=== PATIENT | female | born 1975 | race Two or more races ===

== ENCOUNTER 2020-04-08 15:19 | Emergency (ER) | payer MEDICAID ==
[2020-04-08] MEDS ORDERED: Ketorolac 60 MG/2 ML SDV ONE (16:23)
[2020-04-08] MEDS ORDERED: Ketorolac 60 MG/2 ML SDV IM ONE (16:26)
--- NOTE | 2020-04-08 17:01 | CRLCR ---
INDICATION: Fall. Pain. TECHNIQUE: Three views right wrist. FINDINGS: Mildly displaced my are mildly angulated acute comminuted fracture involving the distal right radius with intra-articular extension. Mild to moderate soft tissue swelling distal right forearm and wrist. No other fracture or dislocation in right wrist. On the lateral view, the right ulna is mildly displaced dorsally. Remainder negative. Dictated by Ravi Power MD @ Apr 08 2020 4:58PM Signed by Dr. Ravi Power @ Apr 08 2020 5:00PM
--- NOTE | 2020-04-08 17:45 | EDM.PDOC ---
ED HPI GENERAL MEDICAL PROBLEM - General Chief Complaint: Upper Extremity Injury/Pain Stated Complaint: HURT RIGHT WRIST Time Seen by Provider: 04/08/20 16:23 Source of Information: Reports: Patient, Family, RN Notes Reviewed History Limitations: Reports: No Limitations - History of Present Illness INITIAL COMMENTS - FREE TEXT/NARRATIVE: 44-year-old female presents emergency department today after a fall on outstretched hand right - Related Data Allergies Allergy/AdvReac Type Severity Reaction Status Date / Time acetaminophen [From Tylenol] Allergy Rash Verified 04/08/20 16:14 amoxicillin Allergy Rash Verified 04/08/20 16:14 Home Meds: Home Meds PARoxetine [Paxil] 1 tab PO DAILY 04/08/20 [History] Pantoprazole Sodium [Protonix] 1 tab PO DAILY 04/08/20 [History] Past Medical History - Past Surgical History Female Surgical History: Reports: Endometrial Ablation Social & Family History - Tobacco Use Smoking Status *Q: Never Smoker Review of Systems - Review of Systems Review Of Systems: See Below (Excuse me) Musculoskeletal: Reports: Joint Pain (Right wrist) ED EXAM, GENERAL - Physical Exam Exam: See Below Free Text/Narrative:: Examination of the wrist she has full range of motion of all digits she has pain with any flexion extension of the wrist radial pulses +2 there is tenderness to palpation over the radius Exam Limited By: No Limitations General Appearance: Alert, WD/WN, No Apparent Distress ED TRAUMA EXTREMITY PROCEDURES - Splinting Right Lower Extremity Pre-Procedure NV Status: Normal Post-Procedure NV Status: Normal Splint Material: Fiberglass Splint Design: Posterior Applied & Form Fitted By: Provider, Nurse Provider Post-Splint Application NV Check: NV Status Normal, Good Position Complications: No Course - Vital Signs Last Recorded V/S: Last Vital Signs Temp 98.5 F 04/08/20 16:20 Pulse 98 04/08/20 16:20 Resp 16 04/08/20 16:20 BP 144/89 H 04/08/20 16:20 Pulse Ox 100 04/08/20 16:20 - Orders/Labs/Meds Meds: Medications Discontinued Medications Generic Name Dose Route Start Last Admin Trade Name Freq PRN Reason Stop Dose Admin Ketorolac Tromethamine Confirm 04/08/20 16:23 Toradol Administered 04/08/20 16:24 Dose 60 mg .ROUTE .STK-MED ONE Ketorolac Tromethamine 60 mg 04/08/20 16:26 04/08/20 16:28 Toradol IM 04/08/20 16:27 60 mg ONETIME ONE Administration Departure - Departure Time of Disposition: 17:45 Disposition: Home, Self-Care 01 Condition: Fair Clinical Impression: Right radial fracture Qualifiers: Encounter type: initial encounter Radius location: distal Fracture type: closed Fracture morphology: other fracture Qualified Code(s): S52.591A - Other fractures of lower end of right radius, initial encounter for closed fracture - Discharge Information Instructions: Radial Head Fracture Referrals: PCP,None [Primary Care Provider] - Additional Instructions: Continue to use ibuprofen as needed for pain control, use the hydrocodone for breakthrough pain this does have Tylenol in it, may want to take Benadryl with this medication if needed, please follow-up with your orthopedic or primary care provider upon return home continue to use the splint until reevaluated by orthopedics, call return to the emergency department worsening of symptoms Sepsis Event Note (ED) - Evaluation Sepsis Screening Result: No Definite Risk - Focused Exam Vital Signs: Vital Signs Temp Pulse Resp BP Pulse Ox 04/08/20 16:20 98.5 F 98 16 144/89 H 100 04/08/20 16:08 98.5 F 98 16 144/89 H 100 - Assessment/Plan Plan: Assessment Acuity = acute Site and laterality = mildly displaced acute comminuted fracture distal radius Etiology = secondary to fall on outstretched hand Manifestations = pain Location of injury = Home Lab values = x-ray describes fracture above Plan She is placed in a posterior splint hydrocodone 5/325 1 tab p.o. 3 times daily PRN total #20 for pain control she will follow-up with orthopedics upon return home images provided, she does have an allergy to Tylenol however she has tolerated combination narcotics in the past is going to use ibuprofen first but if she needs breakthrough pain she will use 1 of these narcotics This note was dictated using [employer] voice recognition software please call with any questions on syntax or grammar.
== END 2020-04-08 18:08 | disposition home or self-care (01) ==
LOC: JP.ED 15:19
DX: S52.571A Other intraarticular fracture of lower end of right radius, initial encounter for closed fracture (principal); Z88.6 Allergy status to analgesic agent; Z88.1 Allergy status to other antibiotic agents; Z79.899 Other long term (current) drug therapy; W19.XXXA Unspecified fall, initial encounter; Y92.009 Unspecified place in unspecified non-institutional (private) residence as the place of occurrence of the external cause
CPT/HCPCS: 29125; 73110; 96372; 99283; J1885